=== PATIENT | female | born 1985 | race Caucasian/White ===

== ENCOUNTER → 2017-11-16 11:13 | Outpatient (CLI) | payer OTHER, SELFPAY ==
[2017-11-16 12:20] LABS: Erythrocyte Sedimentation Rate 15 mm/hr (0-20)
[2017-11-16 12:40] LABS: Absolute Lymphocyte Count 2.06 X10^3/ul (0.83-4.51); Basophil# 0.03 X10^3/uL; Basophil% 0.2 % (0-1); Eosinophil# 0.11 X10^3/uL; Eosinophils% 0.9 % (0-5); Hematocrit 36.8 % (37-47); Hemoglobin 11.9 g/dl (12.0-15.0); Lymphocyte # 2.06 X10^3/ul (4.0); Lymphocyte % 17.1 % (19-41); Mean Corp Hgb Conc 32.3 g/gl (32-36); Mean Corpuscular Hgb 29.7 pg (27.0-32.0); Mean Corpuscular Volume 91.8 fL (81-99); Mean Platelet Vol. 10.8 fl (6.2-12.0); Monocyte# 0.64 X10^3/uL; Monocyte% 5.3 % (0-10); Neutrophil # 8.95 X10^3/uL (2.7-7.7); Neutrophil % 74.6 % (47-70); Platelet Count 270 K/mm3 (150-450); RBC Distribution Width CV 13.1 % (11.6-14.6); Red Blood Count 4.01 M/mm3 (4.2-5.4)
[2017-11-16 12:48] LABS: POSITIVE COUNT NO; POSITIVE DIFFERENTIAL NO; POSITIVE MORPHOLOGY NO
[2017-11-16 12:55] LABS: AST(SGOT) 14 U/L (15-37); Alanine Aminotransfer ALT/SGPT 19 U/L (13-56); Albumin, Serum 2.6 g/dL (3.2-5.0); BUN 5 mg/dL (7-18); CRP 4.35 mg/L (0.0-3.0); Creatinine, Serum 0.39 mg/dL (0.55-1.02); EST Glomerular Filtration Rate 198 mL/min (>60); Est Glom Filt Rate - Afr Amer 240 mL/min (>60)
[2017-11-18 16:09] LABS: Cytoplasmic Ab (C-ANCA) <1:20 titer (Neg:<1:20)
[2017-11-19 11:18] LABS: Perinuclear Ab (P-ANCA) <1:20 titer (Neg:<1:20)
== END ==
PROVIDERS: Family Provider Preventive Medicine Occupational Medicine; PCP Preventive Medicine Occupational Medicine
DX: M05.9 Rheumatoid arthritis with rheumatoid factor, unspecified (principal); I77.6 Arteritis, unspecified
CPT/HCPCS: 36415; 82040; 82565; 84450; 84460; 84520; 85025; 85652; 86140; 86256

== ENCOUNTER → 2018-05-05 14:42 | Outpatient (CLI) | payer OTHER, SELFPAY ==
[2018-05-05 15:23] LABS: Absolute Lymphocyte Count 2.71 X10^3/ul (0.83-4.51); Absolute Neutrophil Count 4.2 X10^3/uL (2.0-7.7); Basophil# 0.03 X10^3/uL; Basophil% 0.4 % (0-1); Eosinophil# 0.14 X10^3/uL; Eosinophils% 1.9 % (0-5); Hematocrit 37.8 % (37-47); Hemoglobin 12.2 g/dl (12.0-15.0); Lymphocyte # 2.71 X10^3/ul (4.0); Mean Corp Hgb Conc 32.3 g/gl (32-36); Mean Corpuscular Hgb 27.9 pg (27.0-32.0); Mean Corpuscular Volume 86.5 fL (81-99); Mean Platelet Vol. 9.8 fl (6.2-12.0); Monocyte# 0.42 X10^3/uL; Monocyte% 5.6 % (0-10); Neutrophil # 4.21 X10^3/uL (2.7-7.7); POSITIVE COUNT NO; POSITIVE DIFFERENTIAL NO; POSITIVE MORPHOLOGY NO; Platelet Count 262 K/mm3 (150-450); RBC Distribution Width CV 13.9 % (11.6-14.6); Red Blood Count 4.37 M/mm3 (4.2-5.4); White Blood Count 7.5 K/mm3 (4.4-11.0)
[2018-05-05 16:02] LABS: AST(SGOT) 18 U/L (15-37); Alanine Aminotransfer ALT/SGPT 40 U/L (13-56); Albumin, Serum 3.2 g/dL (3.2-5.0); BUN 19 mg/dL (7-18); Creatinine, Serum 0.79 mg/dL (0.55-1.02); EST Glomerular Filtration Rate 88 mL/min (>60); Est Glom Filt Rate - Afr Amer 107 mL/min (>60)
[2018-05-05 16:28] LABS: Erythrocyte Sedimentation Rate 38 mm/hr (0-20)
== END ==
PROVIDERS: Family Provider Preventive Medicine Occupational Medicine; PCP Preventive Medicine Occupational Medicine
DX: M05.9 Rheumatoid arthritis with rheumatoid factor, unspecified (principal); I77.6 Arteritis, unspecified
CPT/HCPCS: 36415; 82040; 82565; 84450; 84460; 84520; 85025; 85652; 86140

== ENCOUNTER → 2018-07-21 15:02 | Outpatient (CLI) | payer OTHER, SELFPAY ==
[2018-07-21 17:30] LABS: Absolute Lymphocyte Count 2.55 X10^3/ul (0.83-4.51); Absolute Neutrophil Count 4.5 X10^3/uL (2.0-7.7); Basophil# 0.02 X10^3/uL; Basophil% 0.3 % (0-1); Eosinophil# 0.14 X10^3/uL; Eosinophils% 1.8 % (0-5); Hematocrit 39.1 % (37-47); Hemoglobin 12.5 g/dl (12.0-15.0); Lymphocyte # 2.55 X10^3/ul (4.0); Lymphocyte % 33.3 % (19-41); Mean Corpuscular Hgb 27.6 pg (27.0-32.0); Mean Corpuscular Volume 86.3 fL (81-99); Monocyte# 0.42 X10^3/uL; Monocyte% 5.5 % (0-10); Neutrophil # 4.51 X10^3/uL (2.7-7.7); POSITIVE COUNT NO; POSITIVE DIFFERENTIAL NO; POSITIVE MORPHOLOGY NO; Platelet Count 310 K/mm3 (150-450); RBC Distribution Width CV 13.7 % (11.6-14.6); RBC Distribution Width SD 43.2 fl (35.1-43.9); Red Blood Count 4.53 M/mm3 (4.2-5.4); White Blood Count 7.7 K/mm3 (4.4-11.0)
[2018-07-21 17:36] LABS: Erythrocyte Sedimentation Rate 33 mm/hr (0-20)
[2018-07-21 17:42] LABS: AST(SGOT) 11 U/L (15-37); Alanine Aminotransfer ALT/SGPT 21 U/L (13-56); Albumin, Serum 3.1 g/dL (3.2-5.0); BUN 18 mg/dL (7-18); Creatinine, Serum 0.73 mg/dL (0.55-1.02); EST Glomerular Filtration Rate 96 mL/min (>60); Est Glom Filt Rate - Afr Amer 116 mL/min (>60)
--- OUTSIDE RECORDS SUMMARY | 2018-09-06 12:43 | XMS RPT_ITS ---
:1985 Author Organization OHIP Care Team Providers Name Role Phone JENNY SCHULER Attending Unavailable LynPaulie rodgers Primary Care Unavailable JENNY SCHULER Attending Unavailable JENNY SCHULER Referring Unavailable LynPaulie thurston Primary Care Unavailable JENNY SCHULER Attending Unavailable JENNY SCHULER Referring Unavailable LynPaulie rodgers Primary Care Unavailable LILLIAM SNOW CNM Attending Unavailable LYN PAULIE Primary Care Unavailable LILLIAM SNOW CNM [facility] Admitting Unavailable LILLIAM SNOW CNM [facility] Attending Unavailable [facility] Primary [facility] Unavailable PROBLEMS PROBLEMS DATE TYPE CONDITION / CODE ATTENDING STATUS SOURCE 08/04/2018 Unknown M05.79 - JENNY SCHULER Active [facility] with [facility] rheumatoid factor Repository of multiple sites without organ or systems involvement / M05.79(ICD-10) 05/26/2018 Unknown M05.9 - JENNY SCHULER Active [facility] rheumatoid Repository factor, unspecified / M05.9(ICD-10) 11/16/2017 Unknown I77.6 - JENNY SCHULER Active [facility] unspecified / Hospital I77.6(ICD-10) Repository PROCEDURES PROCEDURES No Procedure Records FoundRESULTS RESULTS FOLLOW UP (RHEUMATOLOGY) Observed: 07/21/2018 Status: [facility] Source: [place] 7:10 PM [facility] Chief Complaint RA follow-up History of Present Illness The patient states her rheumatoid arthritis has been stable since the last visit. Comorbid Illnesses: ANCA associated vasculitis. Interval Events: pt doing well Some stiffness in hands. Still is breast feeding. Symptoms: Activities: no limitations. Medications: the patient is adherent with her medication regimen. She denies medication side effects. Medication(s): Prednisone. Review of Systems Constitutional: feeling tired. Musculoskeletal: arthralgias and joint stiffness. 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) Past Medical History History of 25 to 26 weeks gestation of (V22.2) History of Breast feeding status of mother (V24.1) (Z39.1) History of Chronic headache (784.0) (R51) History of cervical dysplasia (V13.22) (Z87.410) History of (V13.29) History of Nose fracture (802.0) (S02.2XXA) History of NSAID long-term use (V58.64) (Z79.1) Personal history of scoliosis (V13.59) (Z87.39) Personal history of sinusitis (V12.69) (Z87.09) History of Superficial phlebitis (451.9) (I80.9) Surgical History History of Rhinoplasty Family History Family history of hypertension (V17.49) (Z82.49) Family history of gout (V18.19) (Z82.69) Family history of hypertension (V17.49) (Z82.49) Family history of osteoarthritis (V17.89) (Z82.69) Family history of blood clots (V18.3) (Z82.49) Family history of arthritis (V17.7) (Z82.61) Family history of diabetes mellitus (V18.0) (Z83.3) Family history of leukemia (V16.6) (Z80.6) Family history of myocardial infarction (V17.3) (Z82.49) Family history of myocardial infarction (V17.3) (Z82.49) Family history of diabetes mellitus (V18.0) (Z83.3) Social History Mother Never a smoker Never used tobacco (V49.89) (Z78.9) 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 Social alcohol use Allergies No Known Drug Allergies Recorded By: Alicia Rosenberg; 12/06/2013 7:20:37 PM Current Meds PredniSONE 5 MG Oral Tablet; Take 1 tablet daily; Therapy: 18Psb3255 to (Evaluate:30Oct2018) Requested for: 79Vaf4674; Last Rx:[id number] Ordered Rx By: Alicia Rosenberg; Dispense: 30 Days ; #:30 Tablet; Refill: 5;For: Rheumatoid arthritis involving multiple sites with positive rheumatoid factor; NICOLAS = N; Verified Transmission to [id number]; Last Updated By: Dakotah Spears; 05/03/2018 11:29:53 AM Ferrotabs 240 MG Oral Tablet; TAKE 2 TABLET Daily; Therapy: 14Sxk4615 to Recorded Dispense: 0 Days ; #: Sufficient Tablet; Refill: 0; NICOLAS = N; Record; Last Updated By: Beena Malone; 07/27/2014 9:07:26 AM Fish Oil 1000 MG Oral Capsule; Take 1 capsule twice daily; Therapy: 38Nbx4041 to Recorded Dispense: 0 Days ; #: Sufficient Capsule; Refill: 0; NICOLAS = N; Record; Last Updated By: Beena Malone; 11/23/2014 9:20:38 AM 19 Oral Tablet; TAKE 1 TABLET DAILY; Therapy: 34Bsq8544 to Recorded Dispense: 0 Days ; #: Sufficient Tablet; Refill: 0; NICOLAS = N; Record; Last Updated By: Blanka Goldstein; 11/24/2017 2:55:20 PM Probiotic Oral Capsule; USE DIRECTED; Therapy: 28Sss2744 to Recorded Dispense: 0 Days ; #: Sufficient Capsule; Refill: 0; NICOLAS = N; Record; Last Updated By: Beena Malone; 03/22/2015 9:36:15 AM Vitamin D 2000 UNIT Oral Tablet; Take 1 tablet twice daily; Therapy: 33Rss1653 to Recorded Dispense: 0 Days ; #: Sufficient Tablet; Refill: 0; NICOLAS = N; Record; Last Updated By: Beena Malone; 11/23/2014 9:20:38 AM Vitals Vital Signs Recorded: 00Rjb6007 02:00PM Ltrdtkfrefz66.6 F, Oral Heart Rate69 Idnuyggd679, LUE, Sitting Qyjietxvc18, LUE, Sitting Blood Pressure Cuff SizeAdult Cdifma946 lb BMI Bzkmkufyis25.09 BSA Calculated1.74 O2 Pgpnhtqzis87 Physical Exam Constitutional General appearance: Alert and in no acute distress. Pulmonary Respiratory assessment: No respiratory distress, normal respiratory rhythm and effort. Cardiovascular Exam for edema: No peripheral edema. Musculoskeletal Examination of gait: Normal. Inspection of digits and nails: No clubbing or cyanosis of the fingernails. Inspection/palpation of joints: No joint swelling seen. (contracture R elbow R wrist and R knee with swelling Otherwsie no active synovitis). Appearance - no erythema, no ecchymosis, no amputations, no deformity, no asymmetry and normal spinal curvature. Palpation - no increased warmth, no masses, no click and no crepitus. Skin Skin inspection: Normal skin color and pigmentation, normal skin turgor and no visible rash. Psychiatric Orientation: Oriented to person, place, and time. Mood and affect: Normal. 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) Orders Albumin, Serum; Specimen Source:Blood (BLD); Status:Active; Requested for:19Nov2018; Perform:Lab Services - Lab To Draw (Blood Test); Due:62Eje8603;Ordered; For:Rheumatoid arthritis involving multiple sites with positive rheumatoid factor; Ordered By:Alicia Rosenberg; ALT - Alanine Aminotransferase, Serum; Specimen Source:Blood (BLD); Status:Active; Requested for:19Nov2018; Perform:Lab Services - Lab To Draw (Blood Test); Due:86Zbg1641;Ordered; For:Rheumatoid arthritis involving multiple sites with positive rheumatoid factor; Ordered By:Alicia Rosenberg; AST; Specimen Source:Blood (BLD); Status:Active; Requested for:19Nov2018; Perform:Lab Services - Lab To Draw (Blood Test); Due:48Dkg5375;Ordered; For:Rheumatoid arthritis involving multiple sites with positive rheumatoid factor; Ordered By:Alicia Rosenberg; Blood Urea Nitrogen, Serum; Specimen Source:Blood (BLD); Status:Active; Requested for:19Nov2018; Perform:Lab Services - Lab To Draw (Blood Test); Due:38Phk8277;Ordered; For:Rheumatoid arthritis involving multiple sites with positive rheumatoid factor; Ordered By:Alicia Rosenberg; C Reactive Protein, Serum; Specimen Source:Blood (BLD); Status:Active; Requested for:19Nov2018; Perform:Lab Services - Lab To Draw (Blood Test); Due:84Sgk9759;Ordered; For:Rheumatoid arthritis involving multiple sites with positive rheumatoid factor; Ordered By:Alicia Rosenberg; Complete Blood Count + Differential; Specimen Source:Blood (BLD); Status:Active; Requested for:66Lep6782; Perform:Lab Services - Lab To Draw (Blood Test); Due:47Bmn6833;Ordered; For:Rheumatoid arthritis involving multiple sites with positive rheumatoid factor; Ordered By:Alicia Rosenberg; Creatinine, Serum; Specimen Source:Blood (BLD); Status:Active; Requested for:62Reo9388; Perform:Lab Services - Lab To Draw (Blood Test); Due:84Iha3815;Ordered; For:Rheumatoid arthritis involving multiple sites with positive rheumatoid factor; Ordered By:Alicia Rosenberg; Sedimentation Rate, Erythrocyte; Specimen Source:Blood (BLD); Status:Active; Requested for:53Nmk6256; Perform:Lab Services - Lab To Draw (Blood Test); Due:07Gwp2959;Ordered; For:Rheumatoid arthritis involving multiple sites with positive rheumatoid factor; Ordered By:Alicia Rosenberg; Anti-Neutrophil Cytoplasmic Ab; Specimen Source:Blood (BLD); Status:Active; Requested for:15Kqs4107; Perform:Lab Services - Lab To Draw (Blood Test); Due:29Tph9335;Ordered; For: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 Age appropriate recommendations made The patient's labs, radiology images and reports, and other tests since previous appointment were obtained, reviewed, and summarized as applicable from the physician portal, electronic medical records [facility] and/or outside sources. Pertinent positive and negative findings were considered in medical decision making. All questions were answered and the patient was counseled regarding the diagnosis, prognosis, risk and benefits of the various treatment options and the importance of compliance with therapy. Patient Discussion/Summary RA. and ANCA associated vasculitis. stable. Pt to continue meds. No escalation due to breast feeding Labs were done to assess disease activity and drug toxicity. follow up 3-4 months Patient Education Homegoing instructions As always, a healthy lifestyle helps chronic diseases. Eat a balanced diet, exercise at least 30 minutes a day/5 days a week and be up to date on screening health exams. Signatures Electronically signed by : Alicia Rosenberg MD; Jul 21 2018 7:10PM EST (Author) CBC W/DIFF, AUTOMATED Collected: 07/21/2018 Status: F Source: [place] 3:12 PM [facility] [place] CODE TESTS RESULT OUT OF RANGE REFERENCE UNITS LAB L100.1000 4.4-11.0 K/mm3 Normal WBC 7.7 LAB L100.1200 4.2-5.4 M/mm3 Normal RBC 4.53 LAB L100.1300 12.0-15.0 g/dl Normal HGB 12.5 LAB L100.1400 37-47 % Normal HCT 39.1 LAB L100.1500 81-99 fL Normal MCV 86.3 LAB L100.1600 27.0-32.0 pg Normal MCH 27.6 LAB L100.1700 32-36 g/gl Normal MCHC 32.0 LAB L100.1810 11.6-14.6 % Normal RDW CV 13.7 LAB L100.1820 35.1-43.9 fl Normal RDW SD 43.2 LAB L100.1900 150-450 K/mm3 Normal PLT 310 LAB L100.2000 6.2-12.0 fl Normal MPV 10.0 LAB L100.2100 47-70 % Normal NEUT% 59.0 LAB L100.2200 19-41 % Normal LY% 33.3 LAB L100.2300 0-10 % Normal MONO% 5.5 LAB L100.2400 0-5 % Normal EO% 1.8 LAB L100.2500 0-1 % Normal BASO% 0.3 LAB L100.2550 0.0-0.9 % Normal IM GRAN % 0.100 Result Comment: IG% - Immature Granulocytes (promyelocytes, myelocytes and metamyelocytes) > 1% indicates that a LEFT SHIFT is Present. LAB L100.2620 2.0-7.7 X10 3/uL Normal Absolute Neut 4.5 LAB L100.2720 0.83-4.51 X10 3/ul Normal Absolute Lymph 2.55 Performed By: #### L100.0100, L101.9900 #### [facility] [address] [place], [address] ERYTHROCYTE SED RATE Collected: 07/21/2018 Status: F Source: [place] 3:12 PM [facility] [place] TYPE CODE TESTS RESULT OUT OF RANGE REFERENCE UNITS LAB L102.0000 0-20 mm/hr High SED RATE 33 Performed By: #### L100.0100, L101.9900 #### [facility] [address] [place], [address] BUN Collected: 07/21/2018 Status: F Source: [place] 3:12 PM [facility] [place] TYPE CODE TESTS RESULT OUT OF RANGE REFERENCE UNITS LAB L501.1000 7-18 mg/dL Normal BUN 18 Performed By: #### L501.1000, L501.1105, L501.1800, L501.4100, L501.4405, L501.6710 #### [facility] [address] [place], [address] SERUM CREATININE AND Collected: 07/21/2018 Status: F Source: [place] GFR 3:12 PM [facility] [place] TYPE CODE TESTS RESULT OUT OF RANGE REFERENCE UNITS LAB L501.1100 0.55-1.02 mg/dL Normal 0.73 CREAT,SERUM Result Comment: The validity of the calculated GFR AND GFRAA in patients over 70 years has not been determined. Clinical correlation is essential. LAB L501.1110 >60 mL/min Normal EST GFR 96 Result Comment: Non- GFR Calc LAB L501.1115 >60 mL/min Normal EST GFR - AA 116 Result Comment: GFR Calc Performed By: #### L501.1000, L501.1105, L501.1800, L501.4100, L501.4405, L501.6710 #### [facility] [address] [place], [address] ALBUMIN, SERUM Collected: 07/21/2018 Status: F Source: [place] 3:12 PM [facility] [place] TYPE CODE TESTS RESULT OUT OF RANGE REFERENCE UNITS LAB L501.1800 3.2-5.0 g/dL Low ALB 3.1 Performed By: #### L501.1000, L501.1105, L501.1800, L501.4100, L501.4405, L501.6710 #### [facility] [address] [place], [address] AST(SGOT) Collected: 07/21/2018 Status: F Source: [place] 3:12 PM [facility] [place] TYPE CODE TESTS RESULT OUT OF RANGE REFERENCE UNITS LAB L501.4100 15-37 U/L Low AST 11 Performed By: #### L501.1000, L501.1105, L501.1800, L501.4100, L501.4405, L501.6710 #### [facility] [address] [place], [address] ALANINE AMINOTRANSFERAS Collected: 07/21/2018 Status: F Source: [place] (SGPT) 3:12 PM [facility] [place] TYPE CODE TESTS RESULT OUT OF RANGE REFERENCE UNITS LAB L501.4405 13-56 U/L Normal ALT 21 Performed By: #### L501.1000, L501.1105, L501.1800, L501.4100, L501.4405, L501.6710 #### [facility] [address] [place], [place], [id number] CRP Collected: 07/21/2018 Status: F Source: [place] 3:12 PM [facility] [place] TYPE CODE TESTS RESULT OUT OF RANGE REFERENCE UNITS LAB L501.6710 0.0-3.0 mg/L High 22.40 C-REACTIVE PROT Result Comment: C-Reactive Protein (CRP) provides useful information for the diagnosis, therapy and monitoring of inflammatory processes and associated diseases. For the evaluation of Relative Risk for Cardiovascular Disease, a High Sensitivity CRP (HSCRP) should be ordered. Performed By: #### L501.1000, L501.1105, L501.1800, L501.4100, L501.4405, L501.6710 #### [facility] [address] [place], [address] MISCELLANEOUS LAB Collected: 07/21/2018 Status: F Source: [place] [facility]EDURE 3[facility]12 PM [facility] Order Comment: Comments: ANCA PROFILE [id number] TIGER/RT Test(s) Ordered: ANCA PROFILE [id number] TIGER/RT TYPE CODE TESTS RESULT OUT OF RANGE REFERENCE UNITS LAB L801.1541 Normal [facility] LAB TEST Result Comment: TEST RESULT UNITS REF INTERVAL ANCA Panel Antimyeloperoxidase (MPO) Abs <9.0 U/mL 0.0 - 9.0 Antiproteinase 3 (NJ-3) Abs <3.5 U/mL 0.0 - 3.5 Cytoplasmic (C-ANCA) <1:20 titer Neg:<1:20 Perinuclear (P-ANCA) <1:20 titer Neg:<1:20 The presence of positive fluorescence exhibiting P-ANCA or C-ANCA patterns alone is not specific for the diagnosis of Lilliam's Granulomatosis (WG) or microscopic polyangiitis. Decisions about treatment should not be based solely on ANCA IFA results. The International ANCA Group Consensus recommends follow up testing of positive sera with both NJ-3 and MPO-ANCA enzyme immunoassays. As many as 5% serum samples are positive only by EIA. Ref. AM J Clin Pathol 1999;111:507-513. Atypical pANCA <1:20 titer Neg:<1:20 02 The atypical pANCA pattern has been observed in a significant percentage of patients with ulcerative colitis, primary sclerosing cholangitis and autoimmune hepatitis. TESTING PERFORMED AT [facility]. ORIGINAL REPORT ON FILE IN LAB CONTAINS ADDITIONAL TEST SITE INFORMATION. Performed By: #### L801.1541 #### [facility] [address] [place], [address] CBC W/DIFF, AUTOMATED Collected: 05/05/2018 Status: F Source: [place] 2:50 PM [facility] [place] TYPE CODE TESTS RESULT OUT OF RANGE REFERENCE UNITS LAB L100.1000 4.4-11.0 K/mm3 Normal WBC 7.5 LAB L100.1200 4.2-5.4 M/mm3 Normal RBC 4.37 LAB L100.1300 12.0-15.0 g/dl Normal HGB 12.2 LAB L100.1400 37-47 % Normal HCT 37.8 LAB L100.1500 81-99 fL Normal MCV 86.5 LAB L100.1600 27.0-32.0 pg Normal MCH 27.9 LAB L100.1700 32-36 g/gl Normal MCHC 32.3 LAB L100.1810 11.6-14.6 % Normal RDW CV 13.9 LAB L100.1820 35.1-43.9 fl Normal RDW SD 43.0 LAB L100.1900 150-450 K/mm3 Normal PLT 262 LAB L100.2000 6.2-12.0 fl Normal MPV 9.8 LAB L100.2100 47-70 % Normal NEUT% 56.0 LAB L100.2200 19-41 % Normal LY% 36.0 LAB L100.2300 0-10 % Normal MONO% 5.6 LAB L100.2400 0-5 % Normal EO% 1.9 LAB L100.2500 0-1 % Normal BASO% 0.4 LAB L100.2550 0.0-0.9 % Normal IM GRAN % 0.100 Result Comment: IG% - Immature Granulocytes (promyelocytes, myelocytes and metamyelocytes) > 1% indicates that a LEFT SHIFT is Present. LAB L100.2620 2.0-7.7 X10 3/uL Normal Absolute Neut 4.2 LAB L100.2720 0.83-4.51 X10 3/ul Normal Absolute Lymph 2.71 Performed By: #### L100.0100, L101.9900 #### [facility] [address] [place], [address] ERYTHROCYTE SED RATE Collected: 05/05/2018 Status: F Source: [place] 2:50 PM [facility] [place] TYPE CODE TESTS RESULT OUT OF RANGE REFERENCE UNITS LAB L102.0000 0-20 mm/hr High SED RATE 38 Performed By: #### L100.0100, L101.9900 #### [facility] [address] [place], [address] BUN Collected: 05/05/2018 Status: F Source: [place] 2:50 PM [facility] [place] TYPE CODE TESTS RESULT OUT OF RANGE REFERENCE UNITS LAB L501.1000 7-18 mg/dL High BUN 19 Performed By: #### L501.1000, L501.1105, L501.1800, L501.4100, L501.4405, L501.6710 #### [facility] [address] [place], [address] SERUM CREATININE AND Collected: 05/05/2018 Status: F Source: [place] GFR 2:50 PM [facility] [place] TYPE CODE TESTS RESULT OUT OF RANGE REFERENCE UNITS LAB L501.1100 0.55-1.02 mg/dL Normal 0.79 CREAT,SERUM Result Comment: The validity of the calculated GFR AND GFRAA in patients over 70 years has not been determined. Clinical correlation is essential. LAB L501.1110 >60 mL/min Normal EST GFR 88 Result Comment: Non- GFR Calc LAB L501.1115 >60 mL/min Normal EST GFR - AA 107 Result Comment: GFR Calc Performed By: #### L501.1000, L501.1105, L501.1800, L501.4100, L501.4405, L501.6710 #### [facility] [address] [place], [address] ALBUMIN, SERUM Collected: 05/05/2018 Status: F Source: [place] 2:50 PM [facility] [place] TYPE CODE TESTS RESULT OUT OF RANGE REFERENCE UNITS LAB L501.1800 3.2-5.0 g/dL Normal ALB 3.2 Performed By: #### L501.1000, L501.1105, L501.1800, L501.4100, L501.4405, L501.6710 #### [facility] [address] [place], [address] AST(SGOT) Collected: 05/05/2018 Status: F Source: [place] 2:50 PM [facility] [place] TYPE CODE TESTS RESULT OUT OF RANGE REFERENCE UNITS LAB L501.4100 15-37 U/L Normal AST 18 Performed By: #### L501.1000, L501.1105, L501.1800, L501.4100, L501.4405, L501.6710 #### [facility] [address] [place], [place], [id number] ALANINE AMINOTRANSFERAS Collected: 05/05/2018 Status: F Source: [place] (SGPT) 2:50 PM [facility] [place] TYPE CODE TESTS RESULT OUT OF RANGE REFERENCE UNITS LAB L501.4405 13-56 U/L Normal ALT 40 Performed By: #### L501.1000, L501.1105, L501.1800, L501.4100, L501.4405, L501.6710 #### [facility] [address] [place], [place], [id number] CRP Collected: 05/05/2018 Status: F Source: [place] 2:50 PM [facility] [place] TYPE CODE TESTS RESULT OUT OF RANGE REFERENCE UNITS LAB L501.6710 0.0-3.0 mg/L High 17.10 C-REACTIVE PROT Result Comment: C-Reactive Protein (CRP) provides useful information for the diagnosis, therapy and monitoring of inflammatory processes and associated diseases. For the evaluation of Relative Risk for Cardiovascular Disease, a High Sensitivity CRP (HSCRP) should be ordered. Performed By: #### L501.1000, L501.1105, L501.1800, L501.4100, L501.4405, L501.6710 #### [facility] [address] [place], [place], [id number] MISCELLANEOUS LAB Collected: 05/05/2018 Status: F Source: [place]EDURE 2:50 PM [facility] [place] Order Comment: Comments: [id number] ANCA SER RT Test(s) Ordered: [id number] ANCA SER RT TYPE CODE TESTS RESULT OUT OF RANGE REFERENCE UNITS LAB L801.1541 Normal [facility] LAB TEST Result Comment: TEST RESULT UNITS REF INTERVAL ANCA Panel Antimyeloperoxidase (MPO) Abs <9.0 U/mL 0.0 - 9.0 Antiproteinase 3 (NJ-3) Abs <3.5 U/mL 0.0 - 3.5 Cytoplasmic (C-ANCA) <1:20 titer Neg:<1:20 Perinuclear (P-ANCA) <1:20 titer Neg:<1:20 The presence of positive fluorescence exhibiting P-ANCA or C-ANCA patterns alone is not specific for the diagnosis of Lilliam's Granulomatosis (WG) or microscopic polyangiitis. Decisions about treatment should not be based solely on ANCA IFA results. The International ANCA Group Consensus recommends follow up testing of positive sera with both NJ-3 and MPO-ANCA enzyme immunoassays. As many as 5% serum samples are positive only by EIA. Ref. AM J Clin Pathol 1999;111:507-513. Atypical pANCA <1:20 titer Neg:<1:20 The atypical pANCA pattern has been observed in a significant percentage of patients with ulcerative colitis, primary sclerosing cholangitis and autoimmune hepatitis. TESTING PERFORMED AT [facility]. ORIGINAL REPORT ON FILE IN LAB CONTAINS ADDITIONAL TEST SITE INFORMATION. Performed By: #### L801.1541 #### [facility] [address] [place], [address] FOLLOW UP (RHEUMATOLOGY) Observed: 03/23/2018 Status: UNK Source: [place] 7:10 PM [facility] RE[facility] Chief Complaint RA follow up History of Present Illness The patient states her rheumatoid arthritis has been stable since the last visit. Comorbid Illnesses: ANCA associated vasculitis. Interval Events: just had baby and notes pain in wrist has restarted. R knee is swollen but no pain. Pt restarted low dose prednisone. Symptoms: Activities: no limitations. Medications: the patient is adherent with her medication regimen. She denies medication side effects. Medication(s): Prednisone. Review of Systems Constitutional: no fever, no chills, not feeling poorly, not feeling tired, no recent weight gain and no recent weight loss. ENT: no earache, no hearing loss, no nosebleeds, no nasal discharge, no sore throat and no hoarseness. Cardiovascular: the heart rate was not slow, the heart rate was not fast, no chest pain, no palpitations, no intermittent leg claudication and no lower extremity edema. Respiratory: no cough, not coughing up sputum and no wheezing that is consistent with asthma. Gastrointestinal: no abdominal pain, no constipation, no melena, no nausea, no diarrhea, no vomiting and no blood in stools. Musculoskeletal: joint stiffness, but no arthralgias, no myalgias, no back pain, no joint swelling, no limb pain and no limb swelling. Integumentary: no rashes, no skin lesions, no itching, no skin wound and no dry skin. Neurological: no headache, no confusion, no numbness, no dizziness, no tingling and no fainting. Active Problems ANCA-positive vasculitis (447.6) (I77.6) Iron deficiency anemia (280.9) (D50.9) half-way (current) use of systemic steroids (V58.65) (Z79.52) P-ANCA titer positive (795.79) (R76.8) Rheumatoid arthritis, seropositive (714.0) (M05.9) CRP 94, ESR 55, CCP + need repeat hand xray in December 2014 Vitamin D deficiency (268.9) (E55.9) Past Medical History History of 25 to 26 weeks gestation of (V22.2) History of Breast feeding status of mother (V24.1) (Z39.1) History of Chronic headache (784.0) (R51) History of cervical dysplasia (V13.22) (Z87.410) History of (V13.29) History of Nose fracture (802.0) (S02.2XXA) History of NSAID long-term use (V58.64) (Z79.1) Personal history of scoliosis (V13.59) (Z87.39) Personal history of sinusitis (V12.69) (Z87.09) History of Superficial phlebitis (451.9) (I80.9) Surgical History History of Rhinoplasty Family History Family history of hypertension (V17.49) (Z82.49) Family history of gout (V18.19) (Z82.69) Family history of hypertension (V17.49) (Z82.49) Family history of osteoarthritis (V17.89) (Z82.69) Family history of blood clots (V18.3) (Z82.49) Family history of arthritis (V17.7) (Z82.61) Family history of diabetes mellitus (V18.0) (Z83.3) Family history of leukemia (V16.6) (Z80.6) Family history of myocardial infarction (V17.3) (Z82.49) Family history of myocardial infarction (V17.3) (Z82.49) Family history of diabetes mellitus (V18.0) (Z83.3) Social History Mother Never a smoker Never used tobacco (V49.89) (Z78.9) 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 Social alcohol use Allergies No Known Drug Allergies Recorded By: Alicia Rosenberg; 12/06/2013 7:20:37 PM Current Meds PredniSONE 10 MG Oral Tablet; take 1/2 tablet daily; Therapy: 94Uow8352 to (Evaluate:89Vsg3181) Requested for: 28Bup6512 Recorded Rx By: Alicia Rosenberg; Dispense: 90 Days ; #:90 Tablet; Refill: 3;For: Rheumatoid arthritis, seropositive; NICOLAS = N; Record; Last Updated By: Blanka Goldstein; 11/24/2017 2:55:20 PM Cephalexin 500 MG Oral Capsule; Therapy: (Recorded:15Amr5217) to Recorded Dispense: 0 Days ; #: Sufficient CAPS; Refill: 0; NICOLAS = N; Record; Last Updated By: Nicol Marcus; 03/23/2018 2:45:32 PM Ferrotabs 240 MG Oral Tablet; TAKE 2 TABLET Daily; Therapy: 79Jdd6718 to Recorded Dispense: 0 Days ; #: Sufficient Tablet; Refill: 0; NICOLAS = N; Record; Last Updated By: Beena Malone; 07/27/2014 9:07:26 AM Fish Oil 1000 MG Oral Capsule; Take 1 capsule twice daily; Therapy: 23Nov2014 to Recorded Dispense: 0 Days ; #: Sufficient Capsule; Refill: 0; NICOLAS = N; Record; Last Updated By: Beena Malone; 11/23/2014 9:20:38 AM 19 Oral Tablet; TAKE 1 TABLET DAILY; Therapy: 24Nov2017 to Recorded Dispense: 0 Days ; #: Sufficient Tablet; Refill: 0; NICOLAS = N; Record; Last Updated By: Blanka Goldstein; 11/24/2017 2:55:20 PM Probiotic Oral Capsule; USE DIRECTED; Therapy: 55Gcy0805 to Recorded Dispense: 0 Days ; #: Sufficient Capsule; Refill: 0; NICOLAS = N; Record; Last Updated By: Beena Malone; 03/22/2015 9:36:15 AM Vitamin D 2000 UNIT Oral Tablet; Take 1 tablet twice daily; Therapy: 23Nov2014 to Recorded Dispense: 0 Days ; #: Sufficient Tablet; Refill: 0; NICOLAS = N; Record; Last Updated By: Beena Malone; 11/23/2014 9:20:38 AM Vitals Vital Signs Recorded: 47Ywa9497 02:42PM Mctkpdfqnxa24.5 F, Oral Heart Rate72 Ygwxhwgj002, LUE, Sitting Wusazyfxs76, LUE, Sitting Blood Pressure Cuff SizeAdult Pndoga353 lb 3 oz BMI Tqsucchfhf85.81 BSA Calculated1.76 O2 Roefuqfsvq14 Physical Exam Constitutional General appearance: Alert and in no acute distress. Pulmonary Respiratory assessment: No respiratory distress, normal respiratory rhythm and effort. Cardiovascular Exam for edema: No peripheral edema. Musculoskeletal Examination of gait: Normal. Inspection of digits and nails: No clubbing or cyanosis of the fingernails. Inspection/palpation of joints: No joint swelling seen. (contracture R elbow R wrist and R knee with swelling Otherwsie no active synovitis). Appearance - no erythema, no ecchymosis, no amputations, no deformity, no asymmetry and normal spinal curvature. Palpation - no increased warmth, no masses, no click and no crepitus. Skin Skin inspection: Normal skin color and pigmentation, normal skin turgor and no visible rash. Psychiatric Orientation: Oriented to person, place, and time. Mood and affect: Normal. 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) Orders ANCA With Reflex to MPO, PR3; Source:Blood (D); Status:Active; Requested for:23Mar2018; Perform:Lab Services - Lab To Draw (Blood Test); Due:21Jun2018;Ordered; For:ANCA-positive vasculitis; Ordered By:Alicia Rosenberg; Albumin, Serum; Source:Blood (D); Status:Active; Requested for:23Mar2018; Perform:Lab Services - Lab To Draw (Blood Test); Due:21Jun2018;Ordered; For:Rheumatoid arthritis, seropositive; Ordered By:Alicia Rosenberg; ALT - Alanine Aminotransferase, Serum; Source:Blood (D); Status:Active; Requested for:23Mar2018; Perform:Lab Services - Lab To Draw (Blood Test); Due:21Jun2018;Ordered; For:Rheumatoid arthritis, seropositive; Ordered By:Alicia Rosenberg; AST; Source:Blood ([facility]); Status:Active; Requested for:23Mar2018; Perform:Lab Services - Lab To Draw (Blood Test); Due:21Jun2018;Ordered; For:Rheumatoid arthritis, seropositive; Ordered By:Alicia Rosenberg; Blood Urea Nitrogen, Serum; Source:Blood (D); Status:Active; Requested for:23Mar2018; Perform:Lab Services - Lab To Draw (Blood Test); Due:21Jun2018;Ordered; For:Rheumatoid arthritis, seropositive; Ordered By:Alicia Rosenberg; C Reactive Protein, Serum; Source:Blood (D); Status:Active; Requested for:23Mar2018; Perform:Lab Services - Lab To Draw (Blood Test); Due:21Jun2018;Ordered; For:Rheumatoid arthritis, seropositive; Ordered By:Alicia Rosenberg; Complete Blood Count + Differential; Source:Blood (D); Status:Active; Requested for:23Mar2018; Perform:Lab Services - Lab To Draw (Blood Test); Due:21Jun2018;Ordered; For:Rheumatoid arthritis, seropositive; Ordered By:Alicia Rosenberg; Creatinine, Serum; Source:Blood (BLD); Status:Active; Requested for:35Cxx0771; Perform:Lab Services - Lab To Draw (Blood Test); Due:21Jun2018;Ordered; For:Rheumatoid arthritis, seropositive; Ordered By:Alicia Rosenberg; Sedimentation Rate, Erythrocyte; Source:Blood (BLD); Status:Active; Requested for:69Sas0826; Perform:Lab Services - Lab To Draw (Blood Test); Due:21Jun2018;Ordered; For:Rheumatoid arthritis, seropositive; Ordered By:Alicia Rosenberg; Provider Impressions RA. and ANCA associated vasculitis. stable. Pt to continue meds. Check lab in 1-2 months The patient's labs, radiology images and reports, and other tests since previous appointment were obtained, reviewed, and summarized as applicable from the physician portal, electronic medical records s tend and/or outside sources. Pertinent positive and negative findings were considered in medical decision making. All questions were answered and the patient was counseled regarding the diagnosis, prognosis, risk and benefits of the various treatment options and the importance of compliance with therapy. Patient Discussion/Summary follow up 3-4 months Patient Education Homegoing instructions As always, a healthy lifestyle helps chronic diseases. Eat a balanced diet, exercise at least 30 minutes a day/5 days a week and be up to date on screening health exams Go on [employer] to view your test results. Please ask the office to help you set up your email in order to access this secure system. You can use [employer] to also contact the office for noncritical issues, schedule/cancel appointments and ask for refills. Thank you .. End of Encounter Meds Cephalexin 500 MG Oral Capsule; Therapy: (Recorded:56Qny6427) to Recorded Ferrotabs 240 MG Oral Tablet; TAKE 2 TABLET Daily; Therapy: 94Pzk2040 to Recorded Fish Oil 1000 MG Oral Capsule; Take 1 capsule twice daily; Therapy: 50Qzg3925 to Recorded PredniSONE 10 MG Oral Tablet; take 1/2 tablet daily; Therapy: 32Brk2356 to (Evaluate:27Nxk1480) Requested for: 15Nvp2374 Recorded 19 Oral Tablet; TAKE 1 TABLET DAILY; Therapy: 55Jwj4746 to Recorded Probiotic Oral Capsule; USE DIRECTED; Therapy: 64Dih3530 to Recorded Vitamin D 2000 UNIT Oral Tablet; Take 1 tablet twice daily; Therapy: 21Avt6229 to Recorded HH Collected: 02/20/2018 Status: F Source: [facility] 5:15 AM [facility] REPOSITORY TYPE CODE TESTS RESULT OUT OF RANGE REFERENCE UNITS LAB HGB(LOINC) 12.0-16.0 G/dL Low Hgb 11.6 LAB HCT(LOINC) 37.0-47.0 % Low Hct 34.4 Performed By: #### HH #### [id number] [place], [place] [address] CBC Collected: 02/19/2018 Status: F Source: [facility] 1:43 AM [facility] REPOSITORY TYPE CODE TESTS RESULT OUT OF REFERENCE UNITS RANGE LAB WBC(LOINC) 4.60-10.80 10 3/mcL High WBC 11.10 LAB RBCCT(LOINC 4.20-5.40 10 6/mcL ) RBC 4.27 LAB HGB(LOINC) 12.0-16.0 G/dL Hgb 12.6 LAB HCT(LOINC) 37.0-47.0 % Hct 37.0 LAB MCV(LOINC) 80.0-94.0 fL MCV 86.7 LAB MCH(LOINC) 27.0-31.2 pg MCH 29.5 LAB MCHC(LOINC) 33.0-37.0 G/dL MCHC 34.1 LAB RDW(LOINC) 11.5-14.5 % RDW 13.3 LAB PLT(LOINC) 130-400 10 3/mcL Platelet 222 LAB MPV(LOINC) 7.4-10.4 fL MPV 9.0 Performed By: #### CBC, ADIFF, ANEU, ABOG, ANSG #### [id number] [place], [place] [address] .AUTO DIFF Collected: 02/19/2018 Status: F Source: [facility] 1:43 AM [facility] REPOSITORY TYPE CODE TESTS RESULT OUT OF REFERENCE UNITS RANGE LAB JOANNA(LOINC) 37.0-80.0 % Neutrophil % 70.4 LAB LYM(LOINC) 10.0-50.0 % Lymphocyte % 22.0 LAB MON(LOINC) 1.7-13.0 % Monocyte % 5.1 LAB EO(LOINC) 0.0-7.0 % Eosinophil % 2.1 LAB BAS(LOINC) 0.0-2.5 % Basophil % 0.4 LAB ABLYM(LOIN 0.77-3.85 10 3/mcL C) Lymphocyte, 2.50 Absolute LAB NOREEN(LOINC 0.15-1.00 10 3/mcL ) Monocyte, 0.60 Absolute LAB AEOS(LOINC 0.00-0.40 10 3/mcL ) Eosinophil, 0.20 Absolute LAB ABAS(LOINC 0.00-0.19 10 3/mcL ) Basophil, 0.00 Absolute Performed By: #### CBC, ADIFF, ANEU, ABOG, ANSG #### [address] [address] .NEUABS Collected: 02/19/2018 Status: F Source: [facility] 1:43 AM [facility] REPOSITORY TYPE CODE TESTS RESULT OUT OF REFERENCE UNITS RANGE LAB ANEU(LOINC) 2.85-6.16 10 3/mcL High Neutrophil, 7.80 Absolute Performed By: #### CBC, ADIFF, ANEU, ABOG, ANSG #### [address] [address] GEL ABO Collected: 02/19/2018 Status: F Source: [facility] 1:43 AM [facility] REPOSITORY TYPE CODE TESTS RESULT OUT OF RANGE REFERENCE UNITS LAB ABORH(LOINC ) Unknown ABO/Rh O POS Interp Performed By: #### CBC, ADIFF, ANEU, ABOG, ANSG #### [address] [address] GEL ABS Collected: 02/19/2018 Status: F Source: [facility] 1:43 AM [facility] REPOSITORY TYPE CODE TESTS RESULT OUT OF REFERENCE UNITS RANGE LAB ANSG(LOINC ) Antibody Negative ABSC Screen Gel Performed By: #### CBC, ADIFF, ANEU, ABOG, ANSG #### [address] [address] HGMP Collected: 02/02/2018 Status: F Source: [facility] 4:17 PM [facility] REPOSITORY TYPE CODE TESTS RESULT OUT OF REFERENCE UNITS RANGE LAB WBC(LOINC) 4.60-10.80 10 3/mcL WBC 9.50 LAB RBCCT(LOINC 4.20-5.40 10 6/mcL ) Low RBC 4.09 LAB HGB(LOINC) 12.0-16.0 G/dL Hgb 12.3 LAB HCT(LOINC) 37.0-47.0 % Low Hct 35.7 LAB MCV(LOINC) 80.0-94.0 fL MCV 87.1 LAB MCH(LOINC) 27.0-31.2 pg MCH 30.0 LAB MCHC(LOINC) 33.0-37.0 G/dL MCHC 34.5 LAB RDW(LOINC) 11.5-14.5 % RDW 13.3 LAB PLT(LOINC) 130-400 10 3/mcL Platelet 231 LAB MPV(LOINC) 7.4-10.4 fL MPV 9.1 Performed By: #### HGMP, FE, IBC #### [address] [address] #### ESR, CRP #### [place] [address] FE Collected: 02/02/2018 Status: F Source: [facility] 4:17 [facility] REPOSITORY TYPE CODE TESTS RESULT OUT OF RANGE REFERENCE UNITS LAB FE(LOINC) 65-170 mcg/dL Iron 116 Performed By: #### CARIDADMP, FE, IBC #### [address] [address] #### ESR, CRP #### [place] [address] IBC Collected: 02/02/2018 Status: F Source: [facility] 4:17 [facility] REPOSITORY TYPE CODE TESTS RESULT OUT OF RANGE REFERENCE UNITS LAB IBC(LOINC) 250-450 mcg/dL High TIBC 517 Performed By: #### HGMP, FE, IBC #### [address] [address] #### ESR, CRP #### [place] [address] ESR Collected: 02/02/2018 Status: F Source: [facility] 4:17 [facility] REPOSITORY TYPE CODE TESTS RESULT OUT OF REFERENCE UNITS RANGE LAB ESR(LOINC) 0-20 mm/hr Erythrocyte High Sed Rate 62 Performed By: #### HGMP, FE, IBC #### [facility] [address] [place], [place] [address] #### ESR, CRP #### [facility] [address] [place] [address] CRP Collected: 02/02/2018 Status: F Source: [facility] 4:17 PM [facility] REPOSITORY TYPE CODE TESTS RESULT OUT OF REFERENCE UNITS RANGE LAB CRP(LOINC) <=0.80 mg/dL High C-Reactive 1.29 Protein Performed By: #### JANET NEWTON, IBC #### [facility] [address] [place], [place] [address] #### ESR, CRP #### [facility] [address] [place] [address] ERYTHROCYTE SED RATE Collected: 11/16/2017 Status: F Source: [place] 11:23 AM [facility] REPOSITORY TYPE CODE TESTS RESULT OUT OF RANGE REFERENCE UNITS LAB L102.0000 0-20 mm/hr Normal SED RATE 15 Performed By: #### L101.9900, L100.0100 #### [facility] [address] [place], [address] CBC W/DIFF, AUTOMATED Collected: 11/16/2017 Status: F Source: [place] 11:23 AM [facility] [place]POSITORY TYPE CODE TESTS RESULT OUT OF RANGE REFERENCE UNITS LAB L100.1000 4.4-11.0 K/mm3 High WBC 12.0 LAB L100.1200 4.2-5.4 M/mm3 Low RBC 4.01 LAB L100.1300 12.0-15.0 g/dl Low HGB 11.9 LAB L100.1400 37-47 % Low HCT 36.8 LAB L100.1500 81-99 fL Normal MCV 91.8 LAB L100.1600 27.0-32.0 pg Normal MCH 29.7 LAB L100.1700 32-36 g/gl Normal MCHC 32.3 LAB L100.1810 11.6-14.6 % Normal RDW CV 13.1 LAB L100.1820 35.1-43.9 fl Normal RDW SD 43.0 LAB L100.1900 150-450 K/mm3 Normal PLT 270 LAB L100.2000 6.2-12.0 fl Normal MPV 10.8 LAB L100.2100 47-70 % High NEUT% 74.6 LAB L100.2200 19-41 % Low LY% 17.1 LAB L100.2300 0-10 % Normal MONO% 5.3 LAB L100.2400 0-5 % Normal EO% 0.9 LAB L100.2500 0-1 % Normal BASO% 0.2 LAB L100.2550 0.0-0.9 % High IM GRAN % 1.900 Result Comment: IG% - Immature Granulocytes (promyelocytes, myelocytes and metamyelocytes) > 1% indicates that a LEFT SHIFT is Present. LAB L100.2620 2.0-7.7 X10 3/uL High Absolute Neut 9.0 LAB L100.2720 0.83-4.51 X10 3/ul Normal Absolute Lymph 2.06 Performed By: #### L101.9900, L100.0100 #### [facility] [address] [facility] [place], [place], [address] BUN Collected: 11/16/2017 Status: F Source: [place] 11:23 AM [facility] [place]POSITORY TYPE CODE TESTS RESULT OUT OF RANGE REFERENCE UNITS LAB L501.1000 7-18 mg/dL Low BUN 5 Performed By: #### L501.1000, L501.1105, L501.1800, L501.4100, L501.4405, L501.6710 #### [facility] [address] [facility]. [place], [place], [address] SERUM CREATININE AND Collected: 11/16/2017 Status: F Source: [facility] GFR 11:23 AM [facility] REPOSITORY TYPE CODE TESTS RESULT OUT OF RANGE REFERENCE UNITS LAB L501.1100 0.55-1.02 mg/dL Low 0.39 CREAT,SERUM Result Comment: The validity of the calculated GFR AND GFRAA in patients over 70 years has not been determined. Clinical correlation is essential. LAB L501.1110 >60 mL/min Normal EST GFR 198 Result Comment: Non- GFR Calc LAB L501.1115 >60 mL/min Normal EST GFR - AA 240 Result Comment: GFR Calc Performed By: #### L501.1000, L501.1105, L501.1800, L501.4100, L501.4405, L501.6710 #### [facility] [address] [place], [address] ALBUMIN, SERUM Collected: 11/16/2017 Status: F Source: [place] 11:23 AM [facility] [place]ITORY TYPE CODE TESTS RESULT OUT OF RANGE REFERENCE UNITS LAB L501.1800 3.2-5.0 g/dL Low ALB 2.6 Performed By: #### L501.1000, L501.1105, L501.1800, L501.4100, L501.4405, L501.6710 #### [facility] [address] [place], [address] AST(SGOT) Collected: 11/16/2017 Status: F Source: [place] 11:23 AM [facility] [place]ORY TYPE CODE TESTS RESULT OUT OF RANGE REFERENCE UNITS LAB L501.4100 15-37 U/L Low AST 14 Performed By: #### L501.1000, L501.1105, L501.1800, L501.4100, L501.4405, L501.6710 #### [facility] [address] [place], [address] ALANINE AMINOTRANSFERAS Collected: 11/16/2017 Status: F Source: [place] (SGPT) 11:23 AM [facility] [place]ORY TYPE CODE TESTS RESULT OUT OF RANGE REFERENCE UNITS LAB L501.4405 13-56 U/L Normal ALT 19 Result Comment: Please note revised ALT reference range effective 2017. Performed By: #### L501.1000, L501.1105, L501.1800, L501.4100, L501.4405, L501.6710 #### [facility] [address] [place], [place], [address] CRP Collected: 11/16/2017 Status: F Source: [place] 11:23 AM [facility] REPOSITORY TYPE CODE TESTS RESULT OUT OF RANGE REFERENCE UNITS LAB L501.6710 0.0-3.0 mg/L High 4.35 C-REACTIVE PROT Result Comment: C-Reactive Protein (CRP) provides useful information for the diagnosis, therapy and monitoring of inflammatory processes and associated diseases. For the evaluation of Relative Risk for Cardiovascular Disease, a High Sensitivity CRP (HSCRP) should be ordered. Performed By: #### L501.1000, L501.1105, L501.1800, L501.4100, L501.4405, L501.6710 #### [facility] [place], [address] ANCA Collected: 11/16/2017 Status: F Source: [place] 11:23 AM [facility] REPOSITORY TYPE CODE TESTS RESULT OUT OF RANGE REFERENCE UNITS LAB L3300.1225 Neg:<1:20 titer CYTOPLASMIC Normal Ab <1:20 LAB L3300.1250 Neg:<1:20 titer PERINUCLEAR Normal Ab <1:20 Result Comment: The presence of positive fluorescence exhibiting P-ANCA or C-ANCA patterns alone is not specific for the diagnosis of Lilliam's Granulomatosis (WG) or microscopic polyangiitis. Decisions about treatment should not be based solely on ANCA IFA results. The International ANCA Group Consensus recommends follow up testing of positive sera with both NJ- 3 and MPO-ANCA enzyme immunoassays. As many as 5% serum samples are positive only by EIA. Ref. AM J Clin Pathol 1999;111:507-513. LAB L3300.1285 Neg:<1:20 titer High Atypical pANCA >1:640 Result Comment: The atypical pANCA pattern has been observed in a significant percentage of patients with ulcerative colitis, primary sclerosing cholangitis and autoimmune hepatitis. Performed at: [facility] [id number] Building Trades Instructor: Antonio Rios PhD, Phone: [phone] Performed By: #### L3300.1200 #### [facility] (refer to report for specific site) refer to report for address and phone number ALLERGIES ALLERGIES DATE TYPE / CODE NAME / CODE REACTION SEVERITY SOURCE 04/30/2015 Drug No Known Unknown [facility] Allergy/4160 Allergies/F00 [facility] [address](SNOMED 2490068(RXNOR Repository CT) M) ENCOUNTERS ENCOUNTERS ADMIT/DISCHARGE ACCOUNT NUMBER ADMITTING ENCOUNTER LOCATION SOURCE CLASS 07/21/2018 [id number] [facility] ding:MTLAB Repository 05/05/2018 [id number] [facility] ding:LAB Repository 02/19/2018/02/21/20 [id number] SNOW Inpatient BBuilding:OB Jorge 18 CNM, RICHMITZY Encounter URoom: Health L. 0217Bed: A [facility] Repository 02/02/2018/02/03/20 [id number] Ambulatory BBuilding:OL [facility] Repository 11/16/2017 [id number] [facility] ding:MTLAB Repository PAYERS PAYERS ENCOUNTER GUARANTOR PAYER SUBSCRIBER SOURCE 07/21/2018 KATIANA Ramirez Primary MARK Mcneill [id number] N Insurance:AETNAPolicy BUPPDOB: [facility] [place]: [id number] [id number] Repository [address]Qfw: 330) Date:0724-96-46[phone] () [id number] [address]RJ: 07/21/2018 Secondary NOT GIVENUNK [place] Insurance:SELF PAY [facility] Number: Effective Repository Date:2018-07-21 05/05/2018 KATIANA aRmirez Primary Mark Mcneill [id number] N Insurance:AETNAPolicy BuppDOB: [facility] [place] Number: [id number], [place] [id number] Repository [address]Ucl: (330) Date:6065-47-25W[phone] () [place] [address]EK: 05/05/2018 Secondary NOT GIVENUNK [place] Insurance:SELF PAY [facility] Number: Effective Repository Date:2018-05-05 02/19/2018 KATIANA Ramirez Primary MARK BUPPDOB: [facility] BUPPDOB: Insurance:AETNA [id number] Foundation [id number] N NACPolicy Number: [address] [place] [id number] [place], [place] Date:2018-02-19 [address]Wbc: [phone]~AKBharathBUPP@ [phone] [phone] Adriane: Name:AP O BOX (HP)Tel: [phone] [facility], [place] 000[address]0000 (WP) (HP)Tel: [phone]: [phone] 02/02/2018 KATIANA Ramirez Primary MARK BUPPDOB: [facility] BUPPDOB: Insurance:AETNA [id number] Foundation [id number] N NACPolicy Number: [address] [place] [id number] [place], [place] Date:2018-02-02 [address]Gwr: [phone]~BUPP@ [phone] [phone] AILRachel: Name:AP O BOX (HP)Tel: [phone] [place], [place] 000[address] (WP) (HP)Tel: [phone]: [phone] 11/16/2017 KATIANA Ramirez Primary Mark [place] [id number] N Insurance:AETNAPolicy BuppDOB: [facility] [place] Number: [id number] [id number] Repository [address]Ibh: 330) Date:7742-58-68AA [phone] (HP) [id number] [place] [address]UO: 11/16/2017 Secondary NOT GIVENUNK [place] Insurance:SELF PAY [facility]: Effective Repository Date:2017-11-16
== END ==
PROVIDERS: Family Provider Preventive Medicine Occupational Medicine; PCP Preventive Medicine Occupational Medicine
DX: M05.79 Rheumatoid arthritis with rheumatoid factor of multiple sites without organ or systems involvement (principal); M31.8 Other specified necrotizing vasculopathies
CPT/HCPCS: 36415; 82040; 82565; 84450; 84460; 84520; 85025; 85652; 86140

== ENCOUNTER → 2018-11-17 15:44 | Outpatient (CLI) | payer OTHER, SELFPAY ==
[2018-11-17 17:36] LABS: Erythrocyte Sedimentation Rate 41 mm/hr (0-20)
[2018-11-17 17:38] LABS: Absolute Lymphocyte Count 2.69 X10^3/ul (0.83-4.51); Absolute Neutrophil Count 4.6 X10^3/uL (2.0-7.7); Basophil# 0.02 X10^3/uL; Basophil% 0.3 % (0-1); Eosinophil# 0.11 X10^3/uL; Eosinophils% 1.4 % (0-5); Hematocrit 38.7 % (37-47); Hemoglobin 12.3 g/dl (12.0-15.0); Lymphocyte # 2.69 X10^3/ul (4.0); Lymphocyte % 34.4 % (19-41); Mean Corp Hgb Conc 31.8 g/gl (32-36); Mean Corpuscular Hgb 27.2 pg (27.0-32.0); Mean Corpuscular Volume 85.6 fL (81-99); Mean Platelet Vol. 10.7 fl (6.2-12.0); Monocyte# 0.37 X10^3/uL; Monocyte% 4.7 % (0-10); Neutrophil # 4.62 X10^3/uL (2.7-7.7); Neutrophil % 59.1 % (47-70); Platelet Count 256 K/mm3 (150-450); RBC Distribution Width CV 14.5 % (11.6-14.6); RBC Distribution Width SD 44.1 fl (35.1-43.9); Red Blood Count 4.52 M/mm3 (4.2-5.4); White Blood Count 7.8 K/mm3 (4.4-11.0)
[2018-11-17 17:40] LABS: AST(SGOT) 9 U/L (15-37); Alanine Aminotransfer ALT/SGPT 20 U/L (13-56); Albumin, Serum 3.3 g/dL (3.2-5.0); BUN 14 mg/dL (7-18); Creatinine, Serum 0.92 mg/dL (0.55-1.02); EST Glomerular Filtration Rate 73 mL/min (>60); Est Glom Filt Rate - Afr Amer 89 mL/min (>60)
[2018-11-17 17:45] LABS: POSITIVE COUNT NO; POSITIVE DIFFERENTIAL NO; POSITIVE MORPHOLOGY NO
[2018-11-21 20:06] LABS: Cytoplasmic Ab (C-ANCA) <1:20 titer (Neg:<1:20)
[2018-11-22 12:23] LABS: Perinuclear Ab (P-ANCA) <1:20 titer (Neg:<1:20)
== END ==
PROVIDERS: Family Provider Preventive Medicine Occupational Medicine; PCP Preventive Medicine Occupational Medicine; Referring Provider Internal Medicine; Visit Provider Internal Medicine
DX: M05.79 Rheumatoid arthritis with rheumatoid factor of multiple sites without organ or systems involvement (principal); M31.8 Other specified necrotizing vasculopathies
CPT/HCPCS: 36415; 82040; 82565; 84450; 84460; 84520; 85025; 85652; 86140; 86256

== ENCOUNTER → 2019-05-02 10:47 | Outpatient (CLI) | payer OTHER, SELFPAY ==
--- NOTE | 2019-05-02 10:56 | BD_ITS ---
STUDY: DUAL ENERGY X-RAY ABSORPTIOMETRY / DXA REASON FOR EXAM: Female, 33 years old. Steroid use. Loss of height. TECHNIQUE: Bone Mineral Density (BMD) measurements of lumbar spine and bilateral hips were obtained. COMPARISON: None. FINDINGS: Lumbar Spine (L1-L4): g/cm2 (0.911) / T-score (-2.2) / Z-score (-2.2) Findings are suggestive of osteopenia with a high fracture risk. Left Femur Total: g/cm2 (0.767) / T-score (-1.9) / Z-score (-1.8) Left Femoral Neck: g/cm2 (0.773) / T-score (-1.9) / Z-score (-1.6) Right Femur Total: g/cm2 (0.687) / T-score (-2.5) / Z-score (-2.4) Right Femoral Neck: g/cm2 (0.699) / T-score (-2.4) / Z-score (-2.1) BD/Dexa Bone Density Study IMPRESSION: The patient is considered osteopenic as outlined below according to World Guille Organization (WHO) criteria with a high fracture risk. Reference Information: The T-score is the number of standard deviations above or below the standard which is normal for young adults at their peak bone mineral density. The World Health Organization (WHO) interprets the T-scores as follows: Above -1 Normal bone density Between -1 and -2.5 Osteopenia Equal to / or below -2.5 Osteoporosis As a practical clinical guideline, osteopenia may be graded as follows: Mild -1 through -1.5 Moderate -1.6 through -2.0 Severe -2.1 through -2.4 The Z-score is the number of standard deviations above or below age-matched controls. A Z-score of less than -1.5 would be considered abnormal. References: 1. NIH Osteoporosis and Related Bone Diseases http://www.osteo.org 2. International Society for Clinical Densitometry http://www.iscd.org 3. National Osteoporosis Foundation http://www.nof.org Electronically Signed: Chris Acuna, at 8:40 EDT , Service support ,
--- NOTE | 2019-05-02 11:14 | RAD_ITS ---
STUDY: X-RAY - RIGHT HAND REASON FOR EXAM: Female, 33 years old. Rheumatoid arthritis TECHNIQUE: 3 view(s) of the hand. COMPARISON: None. FINDINGS: There is joint space narrowing of the radiocarpal articulation consistent with degenerative arthrosis. Normal distal radioulnar joint. There is a spur of the navicular. Normal carpal articulations Normal carpometacarpal articulation of the thumb. Normal second through fifth carpometacarpal joints. There is a cyst of the base of the second metacarpal. Normal metacarpophalangeal joint of the thumb. Normal interphalangeal joint of the thumb. Normal proximal and distal phalanges of the thumb. Normal metacarpophalangeal joints of the second through fifth fingers. Normal proximal and distal interphalangeal joints of the second through fifth fingers. Normal phalanges of the second through fifth fingers. The soft tissue structures are unremarkable. RAD/Hand Min 3 Views IMPRESSION: Generalized osteopenia. There are degenerative changes or joint space narrowing of the radiocarpal articulation. There is a navicular spur. There is a cyst at the base of the second metacarpal. Degenerative changes are compatible with rheumatoid arthritis. Electronically Signed: Rolly Dickson MD at 17:49 EDT , Service support ,
--- NOTE | 2019-05-02 11:20 | RAD_ITS ---
STUDY: X-RAY - LEFT HAND REASON FOR EXAM: Female, 33 years old. Rheumatoid arthritis TECHNIQUE: 3 view(s) of the hand. COMPARISON: None. FINDINGS: The bones are osteopenic. There is joint space narrowing of the radiocarpal articulation consistent with degenerative arthrosis. There are cystic changes of the distal radial epiphysis. Normal distal radioulnar joint. There are degenerative changes of the navicular and lunate. Normal carpal articulations Normal carpometacarpal articulation of the thumb. Normal second through fifth carpometacarpal joints. Normal metacarpi. Normal metacarpophalangeal joint of the thumb. Normal interphalangeal joint of the thumb. Normal proximal and distal phalanges of the thumb. Normal metacarpophalangeal joints of the second through fifth fingers. Normal proximal and distal interphalangeal joints of the second through fifth fingers. Normal phalanges of the second through fifth fingers. The soft tissue structures are unremarkable. RAD/Hand Min 3 Views IMPRESSION: Degenerative changes of the distal radius and wrist as detailed above compatible with the clinical history of rheumatoid arthritis. Electronically Signed: Rolly Dickson MD at 18:24 EDT , Service support ,
== END ==
PROVIDERS: Family Provider Preventive Medicine Occupational Medicine; PCP Preventive Medicine Occupational Medicine; Referring Provider Internal Medicine; Visit Provider Internal Medicine
DX: M05.79 Rheumatoid arthritis with rheumatoid factor of multiple sites without organ or systems involvement (principal); Z79.52 Long term (current) use of systemic steroids
CPT/HCPCS: 73130; 77080

== ENCOUNTER → 2019-06-01 15:29 | Outpatient (CLI) | payer OTHER, SELFPAY ==
[2019-06-01 17:35] LABS: Absolute Lymphocyte Count 2.34 X10^3/uL (0.83-4.51); Absolute Neutrophil Count 5.5 X10^3/uL (2.0-7.7); Basophil# 0.04 X10^3/uL; Basophil% 0.5 % (0-1); Eosinophil# 0.15 X10^3/uL; Eosinophils% 1.8 % (0-5); Hematocrit 36.9 % (37-47); Hemoglobin 11.7 g/dL (12.0-15.0); Lymphocyte # 2.34 X10^3/ul (4.0); Lymphocyte % 27.8 % (19-41); Mean Corp Hgb Conc 31.7 g/dL (32-36); Mean Corpuscular Hgb 27.4 pg (27.0-32.0); Mean Corpuscular Volume 86.4 fL (81-99); Mean Platelet Vol. 10.4 fl (6.2-12.0); Monocyte# 0.39 X10^3/uL; Monocyte% 4.6 % (0-10); NRBC Flagged by Analyzer 0 % (0-5); Neutrophil # 5.47 X10^3/uL (2.7-7.7); Neutrophil % 64.9 % (47-70); Platelet Count 280 K/mm3 (150-450); RBC Distribution Width CV 13.4 % (11.6-14.6); RBC Distribution Width SD 41.8 fl (35.1-43.9); Red Blood Count 4.27 M/mm3 (4.2-5.4); White Blood Count 8.4 K/mm3 (4.4-11.0)
[2019-06-01 17:51] LABS: AST(SGOT) 9 U/L (15-37); Alanine Aminotransfer ALT/SGPT 17 U/L (13-56); Albumin, Serum 3.3 g/dL (3.2-5.0); BUN 18 mg/dL (7-18); EST Glomerular Filtration Rate 101 mL/min (>60); Est Glom Filt Rate - Afr Amer 122 mL/min (>60)
[2019-06-01 17:57] LABS: Vitamin D,25 Hydroxy 28.4 ng/mL (29.95-100.01)
[2019-06-01 18:00] LABS: Erythrocyte Sedimentation Rate 24 mm/hr (0-20)
== END ==
PROVIDERS: Family Provider Preventive Medicine Occupational Medicine; PCP Preventive Medicine Occupational Medicine; Referring Provider Internal Medicine; Visit Provider Internal Medicine
DX: M05.79 Rheumatoid arthritis with rheumatoid factor of multiple sites without organ or systems involvement (principal); R79.89 Other specified abnormal findings of blood chemistry; M31.8 Other specified necrotizing vasculopathies
CPT/HCPCS: 36415; 82040; 82306; 82310; 82565; 84450; 84460; 84520; 85025; 85652; 86140

== ENCOUNTER → 2020-01-09 14:09 | Outpatient (CLI) | payer OTHER, SELFPAY ==
[2020-01-09 17:52] LABS: Absolute Lymphocyte Count 1.57 X10^3/uL (0.83-4.51); Absolute Neutrophil Count 6.6 X10^3/uL (2.0-7.7); Basophil# 0.05 X10^3/uL; Basophil% 0.6 % (0-1); Eosinophil# 0.06 X10^3/uL; Eosinophils% 0.7 % (0-5); Hematocrit 38.8 % (37-47); Hemoglobin 12.2 g/dL (12.0-15.0); Lymphocyte # 1.57 X10^3/ul (4.0); Mean Corp Hgb Conc 31.4 g/dL (32-36); Mean Corpuscular Hgb 26.9 pg (27.0-32.0); Mean Corpuscular Volume 85.5 fL (81-99); Mean Platelet Vol. 10.2 fl (6.2-12.0); Monocyte# 0.36 X10^3/uL; Monocyte% 4.1 % (0-10); NRBC Flagged by Analyzer 0 % (0-5); Neutrophil # 6.64 X10^3/uL (2.7-7.7); Neutrophil % 76.3 % (47-70); Platelet Count 344 K/mm3 (150-450); RBC Distribution Width CV 13.1 % (11.6-14.6); RBC Distribution Width SD 40.3 fl (35.1-43.9); Red Blood Count 4.54 M/mm3 (4.2-5.4); White Blood Count 8.7 K/mm3 (4.4-11.0)
[2020-01-09 18:03] LABS: Erythrocyte Sedimentation Rate 26 mm/hr (0-20)
[2020-01-09 18:11] LABS: Progesterone Level 13.31 ng/mL (See Comment); Vitamin D,25 Hydroxy 59.3 ng/mL
[2020-01-09 19:04] LABS: AST(SGOT) 11 U/L (15-37); Alanine Aminotransfer ALT/SGPT 21 U/L (13-56); Albumin, Serum 3.5 g/dL (3.2-5.0); BUN 17 mg/dL (7-18); Calcium,Total 8.9 mg/dL (8.5-10.1); Creatinine, Serum 0.67 mg/dL (0.55-1.02); EST Glomerular Filtration Rate 106 mL/min (>60); Est Glom Filt Rate - Afr Amer 129 mL/min (>60); Estradiol 118.7 pg/mL; Free T3 2.3 pg/mL (2.18-3.98); Thyroid Stim Hormone (TSH) 0.72 uIU/mL (0.358-3.74)
[2020-01-11 16:08] LABS: Cytoplasmic Ab (C-ANCA) <1:20 titer (Neg:<1:20)
[2020-01-12 13:12] LABS: Perinuclear Ab (P-ANCA) <1:20 titer (Neg:<1:20)
== END ==
PROVIDERS: PCP Preventive Medicine Occupational Medicine; Referring Provider Specialist; Visit Provider Specialist
DX: E28.8 Other ovarian dysfunction (principal); R53.81 Other malaise; M05.79 Rheumatoid arthritis with rheumatoid factor of multiple sites without organ or systems involvement; R79.89 Other specified abnormal findings of blood chemistry; M31.8 Other specified necrotizing vasculopathies; E03.8 Other specified hypothyroidism
CPT/HCPCS: 36415; 82040; 82306; 82310; 82565; 82627; 82670; 84144; 84403; 84443; 84450; 84460; 84481; 84520; 85025; 85652; 86140; 86256; 82626

== ENCOUNTER → 2020-07-12 11:17 | Outpatient (CLI) | payer OTHER, SELFPAY ==
[2020-07-12 12:59] LABS: Erythrocyte Sedimentation Rate 17 mm/hr (0-20)
[2020-07-12 13:03] LABS: Absolute Lymphocyte Count 1.83 X10^3/uL (0.83-4.51); Basophil# 0.04 X10^3/uL; Basophil% 0.4 % (0-1); Eosinophils% 2.1 % (0-5); Hematocrit 38.1 % (37-47); Hemoglobin 11.9 g/dL (12.0-15.0); Lymphocyte # 1.83 X10^3/ul (4.0); Lymphocyte % 19.2 % (19-41); Mean Corp Hgb Conc 31.2 g/dL (32-36); Mean Corpuscular Hgb 27.7 pg (27.0-32.0); Mean Corpuscular Volume 88.8 fL (81-99); Monocyte# 0.42 X10^3/uL; Monocyte% 4.4 % (0-10); NRBC Flagged by Analyzer 0 % (0-5); Neutrophil # 6.99 X10^3/uL (2.7-7.7); Neutrophil % 73.6 % (47-70); Platelet Count 315 K/mm3 (150-450); RBC Distribution Width CV 13.3 % (11.6-14.6); RBC Distribution Width SD 43.5 fl (35.1-43.9); Red Blood Count 4.29 M/mm3 (4.2-5.4); White Blood Count 9.5 K/mm3 (4.4-11.0)
[2020-07-12 13:09] LABS: Progesterone Level 0.27 ng/mL (See Comment)
[2020-07-12 15:01] LABS: AST(SGOT) 15 U/L (15-37); Alanine Aminotransfer ALT/SGPT 21 U/L (13-56); Albumin, Serum 3.4 g/dL (3.2-5.0); BUN 8 mg/dL (7-18); CRP 7.17 mg/L (0.0-3.0); Creatinine, Serum 0.59 mg/dL (0.55-1.02); EST Glomerular Filtration Rate 123 mL/min (>60); Est Glom Filt Rate - Afr Amer 149 mL/min (>60); Estradiol 39.5 pg/mL; Free T3 2.5 pg/mL (2.18-3.98); T4 Free Direct 1.17 ng/dL (0.76-1.46); Thyroid Stim Hormone (TSH) 1.19 uIU/mL (0.358-3.74)
[2020-07-16 20:08] LABS: Cytoplasmic Ab (C-ANCA) <1:20 titer (Neg:<1:20)
[2020-07-16 20:28] LABS: Perinuclear Ab (P-ANCA) <1:20 titer (Neg:<1:20)
== END ==
PROVIDERS: PCP Preventive Medicine Occupational Medicine; Referring Provider Specialist; Visit Provider Specialist
DX: M05.79 Rheumatoid arthritis with rheumatoid factor of multiple sites without organ or systems involvement (principal); M31.8 Other specified necrotizing vasculopathies; E03.8 Other specified hypothyroidism; E28.8 Other ovarian dysfunction
CPT/HCPCS: 36415; 82040; 82565; 82670; 84144; 84403; 84439; 84443; 84450; 84460; 84481; 84520; 85025; 85652; 86140; 86256

== ENCOUNTER → 2020-10-09 12:16 | Outpatient (CLI) | payer OTHER, SELFPAY ==
[2020-10-09 15:22] LABS: Absolute Lymphocyte Count 1.59 X10^3/uL (0.83-4.51); Absolute Neutrophil Count 8.6 X10^3/uL (2.0-7.7); Basophil# 0.05 X10^3/uL; Basophil% 0.4 % (0-1); Eosinophil# 0.39 X10^3/uL; Eosinophils% 3.5 % (0-5); Hematocrit 38.5 % (37-47); Hemoglobin 12.1 g/dL (12.0-15.0); Lymphocyte # 1.59 X10^3/ul (4.0); Lymphocyte % 14.3 % (19-41); Mean Corp Hgb Conc 31.4 g/dL (32-36); Mean Corpuscular Hgb 27.3 pg (27.0-32.0); Mean Corpuscular Volume 86.7 fL (81-99); Mean Platelet Vol. 10.6 fl (6.2-12.0); Monocyte# 0.44 X10^3/uL; Monocyte% 3.9 % (0-10); NRBC Flagged by Analyzer 0 % (0-5); Neutrophil # 8.63 X10^3/uL (2.7-7.7); Neutrophil % 77.5 % (47-70); Platelet Count 327 K/mm3 (150-450); RBC Distribution Width CV 13.2 % (11.6-14.6); RBC Distribution Width SD 41.2 fl (35.1-43.9); Red Blood Count 4.44 M/mm3 (4.2-5.4); White Blood Count 11.1 K/mm3 (4.4-11.0)
[2020-10-09 15:25] LABS: Erythrocyte Sedimentation Rate 15 mm/hr (0-30)
[2020-10-09 15:59] LABS: AST(SGOT) 16 U/L (15-37); Alanine Aminotransfer ALT/SGPT 21 U/L (13-56); Albumin, Serum 3.6 g/dL (3.2-5.0); BUN 10 mg/dL (7-18); Creatinine, Serum 0.63 mg/dL (0.55-1.02); EST Glomerular Filtration Rate 112 mL/min (>60); Est Glom Filt Rate - Afr Amer 136 mL/min (>60)
[2020-10-10 08:31] LABS: SARS-COV-2 TOTAL ABS Nonreactive (Nonreactive)
== END ==
PROVIDERS: PCP Preventive Medicine Occupational Medicine; Referring Provider Internal Medicine; Visit Provider Internal Medicine
DX: M05.79 Rheumatoid arthritis with rheumatoid factor of multiple sites without organ or systems involvement (principal); M31.8 Other specified necrotizing vasculopathies; T75.89XS Other specified effects of external causes, sequela
CPT/HCPCS: 36415; 82040; 82565; 84450; 84460; 84520; 85025; 85652; 86140; 86769

== ENCOUNTER → 2021-01-29 | Outpatient (CLI) | payer OTHER, SELFPAY ==
[2021-01-29 15:13] LABS: Erythrocyte Sedimentation Rate 20 mm/hr (0-30)
[2021-01-29 15:15] LABS: Absolute Lymphocyte Count 2.32 X10^3/uL (0.83-4.51); Absolute Neutrophil Count 6.2 X10^3/uL (2.0-7.7); Basophil# 0.07 X10^3/uL; Basophil% 0.6 % (0-1); Eosinophil# 1.87 X10^3/uL; Eosinophils% 17.1 % (0-5); Hematocrit 39.1 % (37-47); Hemoglobin 12.7 g/dL (12.0-15.0); Lymphocyte # 2.32 X10^3/ul (0.83-4.51); Lymphocyte % 21.2 % (19-41); Mean Corp Hgb Conc 32.5 g/dL (32-36); Mean Corpuscular Hgb 27.8 pg (27.0-32.0); Mean Corpuscular Volume 85.6 fL (81-99); Mean Platelet Vol. 10.3 fl (6.2-12.0); Monocyte# 0.46 X10^3/uL; Monocyte% 4.2 % (0-10); NRBC Flagged by Analyzer 0 % (0-5); Neutrophil # 6.17 X10^3/uL (2.7-7.7); Neutrophil % 56.5 % (47-70); Platelet Count 279 K/mm3 (150-450); RBC Distribution Width CV 13.4 % (11.6-14.6); RBC Distribution Width SD 41.8 fl (35.1-43.9); Red Blood Count 4.57 M/mm3 (4.2-5.4); White Blood Count 10.9 K/mm3 (4.4-11.0)
[2021-01-29 15:36] LABS: AST(SGOT) 9 U/L (15-37); Alanine Aminotransfer ALT/SGPT 17 U/L (13-56); Albumin, Serum 3.5 g/dL (3.2-5.0); BUN 10 mg/dL (7-18); CRP 7.77 mg/L (0.0-3.0); Creatinine, Serum 0.73 mg/dL (0.55-1.02); EST Glomerular Filtration Rate 96 mL/min (>60); Est Glom Filt Rate - Afr Amer 116 mL/min (>60)
== END | disposition home or self-care (01) ==
PROVIDERS: PCP Preventive Medicine Occupational Medicine; Referring Provider Internal Medicine; Visit Provider Internal Medicine
DX: M05.79 Rheumatoid arthritis with rheumatoid factor of multiple sites without organ or systems involvement (principal); M31.8 Other specified necrotizing vasculopathies
CPT/HCPCS: 36415; 82040; 82565; 84450; 84460; 84520; 85025; 85652; 86140

== ENCOUNTER 2021-10-14 15:11 | Outpatient (CLI) | payer OTHER, SELFPAY ==
[2021-10-14 18:00] LABS: Absolute Lymphocyte Count 2.74 X10^3/uL (0.83-4.51); Absolute Neutrophil Count 5.2 X10^3/uL (2.0-7.7); Basophil# 0.04 X10^3/uL; Basophil% 0.5 % (0-1); Eosinophil# 0.27 X10^3/uL; Eosinophils% 3.1 % (0-5); Hemoglobin 12.1 g/dL (12.0-15.0); Lymphocyte # 2.74 X10^3/ul (0.83-4.51); Lymphocyte % 31.3 % (19-41); Mean Corp Hgb Conc 31.8 g/dL (32-36); Mean Corpuscular Volume 84.8 fL (81-99); Mean Platelet Vol. 10.5 fl (6.2-12.0); Monocyte# 0.47 X10^3/uL; Monocyte% 5.4 % (0-10); NRBC Flagged by Analyzer 0 % (0-5); Neutrophil # 5.21 X10^3/uL (2.7-7.7); Neutrophil % 59.5 % (47-70); Platelet Count 297 K/mm3 (150-450); RBC Distribution Width CV 13.3 % (11.6-14.6); RBC Distribution Width SD 41.8 fl (35.1-43.9); Red Blood Count 4.48 M/mm3 (4.2-5.4); White Blood Count 8.8 K/mm3 (4.4-11.0)
[2021-10-14 18:08] LABS: Erythrocyte Sedimentation Rate 38 mm/hr (0-30)
[2021-10-14 18:14] LABS: AST(SGOT) 8 U/L (15-37); Alanine Aminotransfer ALT/SGPT 21 U/L (13-56); Albumin, Serum 3.6 g/dL (3.2-5.0); BUN 12 mg/dL (7-18); CRP 6.78 mg/L (0.0-3.0); Creatinine, Serum 0.72 mg/dL (0.55-1.02); EST Glomerular Filtration Rate 96 mL/min (>60); Est Glom Filt Rate - Afr Amer 116 mL/min (>60)
[2021-10-17 18:08] LABS: Cytoplasmic Ab (C-ANCA) <1:20 titer (Neg:<1:20)
[2021-10-17 22:14] LABS: Perinuclear Ab (P-ANCA) <1:20 titer (Neg:<1:20)
== END 2021-10-14 23:59 | disposition home or self-care (01) ==
PROVIDERS: PCP Preventive Medicine Occupational Medicine; Referring Provider Internal Medicine; Visit Provider Internal Medicine
DX: M31.8 Other specified necrotizing vasculopathies (principal)
CPT/HCPCS: 36415; 82040; 82565; 84450; 84460; 84520; 85025; 85652; 86140; 86256

== ENCOUNTER → 2024-02-03 | Outpatient (CLI) | payer OTHER, SELFPAY ==
[2024-02-03 10:28] LABS: Absolute Lymphocyte Count 2.72 X10^3/uL (0.83-4.51); Absolute Neutrophil Count 4.7 X10^3/uL (2.0-7.7); Basophil# 0.05 X10^3/uL; Basophil% 0.6 % (0-1); Eosinophil# 0.37 X10^3/uL; Eosinophils% 4.4 % (0-5); Hematocrit 36.4 % (37-47); Lymphocyte # 2.72 X10^3/ul (0.83-4.51); Lymphocyte % 32.7 % (19-41); Mean Corpuscular Hgb 27.8 pg (27.0-32.0); Mean Corpuscular Volume 84.3 fL (81-99); Mean Platelet Vol. 10.5 fl (6.2-12.0); Monocyte# 0.45 X10^3/uL; Monocyte% 5.4 % (0-10); NRBC Flagged by Analyzer 0 % (0-5); Neutrophil # 4.71 X10^3/uL (2.7-7.7); Neutrophil % 56.5 % (47-70); Platelet Count 309 K/mm3 (150-450); RBC Distribution Width CV 13.8 % (11.6-14.6); RBC Distribution Width SD 42.5 fl (35.1-43.9); Red Blood Count 4.32 M/mm3 (4.2-5.4); White Blood Count 8.3 K/mm3 (4.4-11.0)
[2024-02-03 10:30] LABS: Erythrocyte Sedimentation Rate 19 mm/hr (0-30)
[2024-02-03 10:31] LABS: ALB/GLOB Ratio 0.8 RATIO (0.9-2.4); AST(SGOT) 14 U/L (15-37); Alanine Aminotransfer ALT/SGPT 28 U/L (13-56); Albumin, Serum 3.2 g/dL (3.2-5.0); Alkaline Phosphatase 61 U/L (45-117); Anion Gap 8 (5-15); BUN 12 mg/dL (7-18); Calcium,Total 8.8 mg/dL (8.5-10.1); Chloride 104 mmol/L (98-107); Creatinine, Serum 0.67 mg/dL (0.55-1.02); EST Glomerular Filtration Rate 104 mL/min (>60); Est Glom Filt Rate - Afr Amer 126 mL/min (>60); Globulin 3.9 g/dL (2.2-4.2); Glucose 83 mg/dL (74-106); Potassium 3.6 mmol/L (3.5-5.1); Protein, Total 7.1 g/dL (6.4-8.2); Sodium Level 137 mmol/L (136-145)
== END | disposition home or self-care (01) ==
LOC: MTLAB 07:44
PROVIDERS: PCP Preventive Medicine Occupational Medicine; Referring Provider Internal Medicine; Visit Provider Internal Medicine
DX: M05.79 Rheumatoid arthritis with rheumatoid factor of multiple sites without organ or systems involvement (principal)
CPT/HCPCS: 36415; 80053; 82533; 85025; 85652; 86140